=== PATIENT | male | born 1955 | race Caucasian/White ===

== ENCOUNTER 2017-04-25 11:49 | Emergency (ER) | payer BC ==
[~2017-04-25] VITALS: Ht 177.8 cm; Wt 85.7 kg
[~2017-04-25 11:49] MED LIST: ACET325T14 PO; IBUP-1484 PO; OMEP-110 PO; PRED20TA PO; TRAZ50TA18 PO
[2017-04-25 12:02] VITALS: BP 112/71
[2017-04-25] MEDS ORDERED: FLUORESCEIN OPHTHALMIC 1 MG STRIP EACHEYE ONE (13:30)
[2017-04-25] MEDS ORDERED: PROPARACAINE OPHTH 0.5%, 15ML EACHEYE ONE (13:30)
[2017-04-25] MEDS ORDERED: FLUORESCEIN OPHTHALMIC 1 MG STRIP ONE (14:52)
[2017-04-25] MEDS ORDERED: PROPARACAINE OPHTH 0.5%, 15ML ONE (14:52)
[2017-04-25] MEDS ORDERED: SODIUM CHLORIDE 0.9% 1,000 ML IV ONE (15:13)
[2017-04-25 15:38] LABS: HEMATOCRIT 46.4 % (39.2-51.8); HEMOGLOBIN 15.6 g/dL (13.7-18.0); WHITE BLOOD COUNT 9.1 x10^3/uL (3.4-10)
[2017-04-25 15:46] LABS: BLOOD UREA NITROGEN 14 mg/dL (7-18)
[2017-04-25] MEDS ORDERED: OMNIPAQUE 350 MG/ML, 75ML BOTTLE ONE (17:19)
== END 2017-04-25 17:05 | disposition home or self-care (01) ==
LOC: ED 16:00
DX: B30.9 Viral conjunctivitis, unspecified (principal); K21.9 Gastro-esophageal reflux disease without esophagitis
CPT/HCPCS: 36415; 70481; 80048; 82040; 85025; 85651; 99285; Q9967

== ENCOUNTER 2017-07-29 18:32 | Emergency (ER) | payer BC ==
[~2017-07-29] VITALS: Ht 177.8 cm; Wt 86.6 kg
[2017-07-29 19:02] LABS: MEAN CORPUSCULAR HEMOGLOBIN 29.8 pg (27.5-34.5); MEAN CORPUSCULAR VOLUME 87.8 fL (81-97); RED BLOOD COUNT 5.17 x10^6/uL (4.38-5.82); RED CELL DISTRIBUTION WIDTH 13.8 % (9.4-14.8)
[2017-07-29 19:03] LABS: BASOPHILS # (AUTO) 0.04 x10^3/uL (0-0.1); BASOPHILS % (AUTO) 0 % (0-1); EOSINOPHILS # (AUTO) 0.09 x10^3/uL (0-0.4); EOSINOPHILS % (AUTO) 1 % (1-7); LYMPHOCYTES # (AUTO) 2.73 x10^3/uL (1-3.4); LYMPHOCYTES % (AUTO) 25 % (22-44); MD NO; MEAN PLATELET VOLUME 8.4 fL (7.4-10.4); MONOCYTES # (AUTO) 1.12 x10^3/uL (0.2-0.8); MONOCYTES % (AUTO) 10 % (2-9); NEUTROPHILS # (AUTO) 6.79 x10^3/uL (1.8-6.8); NEUTROPHILS % (AUTO) 63 % (42-75); PLATELET COUNT 308 x10^3/uL (130-400)
[2017-07-29] MEDS ORDERED: DULO20CA45 PO (19:03)
[2017-07-29] MEDS ORDERED: PRED5TAB PO (19:08)
[2017-07-29 19:16] LABS: ALBUMIN 3.8 g/dL (3.4-5.0); ANION GAP 8 mmol/L (5-15); CALCIUM 8.5 mg/dL (8.5-10.1); CHLORIDE 105 mmol/L (98-107); CREATININE 1.34 mg/dL (0.7-1.3)
[2017-07-29 19:21] LABS: FREE T4 (FREE THYROXINE) 0.99 ng/dL (0.76-1.46); TROPONIN I < 0.015 ng/mL (0.000-0.045)
[2017-07-29 20:27] VITALS: BP 108/72
== END 2017-07-29 21:05 | disposition home or self-care (01) ==
LOC: ED 20:50
DX: R00.2 Palpitations (principal); M31.5 Giant cell arteritis with polymyalgia rheumatica; K21.9 Gastro-esophageal reflux disease without esophagitis
CPT/HCPCS: 36415; 71045; 80048; 82040; 83735; 84439; 84443; 84484; 85025; 93005; 99285

== ENCOUNTER 2019-10-14 09:14 | Emergency (ER) | payer BC ==
[~2019-10-14] VITALS: Ht 177.8 cm; Wt 88.0 kg
[~2019-10-14 09:14] MED LIST changes: +DULO20CA45 PO; -IBUP-1484 PO; +IBUP-1902 PO; +PRED5TAB PO; -TRAZ50TA18 PO; +TRAZ50TA66 PO
--- NOTE | 2019-10-14 09:47 | NUR ---
IV PLACED FOR MRI, LABS DRAWN WITH START. BP CUFF, PULSE OX IN PLACE. PT UPDATED ON POC. CALL LIGHT WITHIN REACH.
[2019-10-14 10:00] VITALS: BP 121/77
[2019-10-14 10:12] LABS: ALBUMIN 4.1 g/dL (3.4-5.0); ANION GAP 8 mmol/L (5-15); CALCIUM 9.3 mg/dL (8.5-10.1); CHLORIDE 108 mmol/L (98-107); CREATININE 1.19 mg/dL (0.7-1.3)
[2019-10-14] MEDS ORDERED: GADOTERATE 10 MMOL/20 ML SYR ONE (10:13)
--- NOTE | 2019-10-14 10:50 | NUR ---
PT BACK FROM MRI. NO CHANGE IN SX.
--- NOTE | 2019-10-14 11:04 | NUR ---
MRI RESULTS BACK, PT FOR RECHECK.
== END 2019-10-14 12:06 | disposition home or self-care (01) ==
LOC: ED 09:45
DX: G51.0 Bell's palsy (principal); H54.61 Unqualified visual loss, right eye, normal vision left eye; R94.31 Abnormal electrocardiogram [ECG] [EKG]; K21.9 Gastro-esophageal reflux disease without esophagitis
CPT/HCPCS: 36415; 70553; 80048; 82040; 93005; 99285; A9575

== ENCOUNTER 2020-05-13 15:29 | Emergency (ER) | payer BC ==
[~2020-05-13] VITALS: Ht 177.8 cm; Wt 89.4 kg
[2020-05-13 15:32] VITALS: BP 142/79
[2020-05-13] MEDS ORDERED: HYDROmorphone 2 MG/ML, 1ML IM ONE (16:00)
[2020-05-13] MEDS ORDERED: ONDANSETRON ODT 4 MG PO ONE (16:00)
[2020-05-13] MEDS ORDERED: ONDANSETRON ODT 4 MG ONE (16:06)
[2020-05-13] MEDS ORDERED: HYDROmorphone 1 MG/ML, 1ML INJ ONE (16:06)
--- NOTE | 2020-05-13 16:22 | NUR ---
PT COMES IN TODAY FOLLOWING A GLF. STATES HE WAS FIXING A LIGHT IN A CLOSET AND FELL INTO THE OPEN BASEMENT AREA IN THE CLOSET HITTING HIS LEFT LATERAL CHEST AND TWISTING HIS RIGHT KNEE. STATES HE DID NOT HIT HIS HEAD AND HAD NO LOC. STATES "IT TOOK A MINUTE FOR ME TO CATCH MY BREATH, BUT NOW I CAN". PT IS ACCOMPANIED BY HIS WHO WAS NOT IN THE ROOM AT THE TIME OF THE EVENT BUT SHORTLY AFTER AND DESCRIBES THAT THE PT .WAS SITTING ON THE SIDE OF THE BASEMENT ENTRY WHEN SHE CAME INTO THE ROOM AND IN OBVIOUS PAIN.
--- NOTE | 2020-05-13 16:24 | NUR ---
TO XRAY AND CT
--- NOTE | 2020-05-13 17:06 | NUR ---
MD AT BEDSIDE TO DISCUSS RESULTS, PLAN OF CARE
--- NOTE | 2020-05-13 17:09 | NUR ---
PT AND EDUCATED ON USE OF INCENTIVE SPIROMETER PER MD ORDER
--- NOTE | 2020-05-13 17:39 | NUR ---
PT AMBULATED TO DISCHARGE WITH STEADY GAIT. PT ENCOURAGED TO FOLLOWUP DISCUSSED. PT EDUCATED TO RETURN TO THE ED WITH WORSENING SYMPTOMS. PT EDUCATED ON USE OF INCENTIVE SPIROMETER. RETURN DEMONSTRATION SHOWS CORRECT USE.
== END 2020-05-13 17:41 | disposition home or self-care (01) ==
LOC: ED 17:22
DX: S22.42XA Multiple fractures of ribs, left side, initial encounter for closed fracture (principal); M25.561 Pain in right knee; R94.31 Abnormal electrocardiogram [ECG] [EKG]; K21.9 Gastro-esophageal reflux disease without esophagitis; Z88.9 Allergy status to unspecified drugs, medicaments and biological substances; Z88.2 Allergy status to sulfonamides; X58.XXXA Exposure to other specified factors, initial encounter; Y93.89 Activity, other specified; Y92.009 Unspecified place in unspecified non-institutional (private) residence as the place of occurrence of the external cause; Y99.8 Other external cause status
CPT/HCPCS: 71250; 73564; 93005; 96372; 99285; J1170; Q0162

== ENCOUNTER → 2020-10-08 | Outpatient (CLI) | payer BC | END | disposition home or self-care (01) | LOC: CVU 06:54 | PROVIDERS: ATTEND Internal Medicine Cardiovascular Disease | DX: I08.8 Other rheumatic multiple valve diseases (principal); E78.5 Hyperlipidemia, unspecified | CPT/HCPCS: 93306 ==